=== PATIENT | male | born 1965 | race Caucasian/White ===

== ENCOUNTER → 2024-02-29 13:32 | Outpatient (REF) | payer OTHER, SELFPAY | LOC: HWRAD 13:32 | PROVIDERS: ATTENDING PHYSICIAN Internal Medicine Geriatric Medicine | DX: I10 Essential (primary) hypertension (principal); M70.21 Olecranon bursitis, right elbow | CPT/HCPCS: 73080 ==

== ENCOUNTER → 2025-06-04 12:54 | Outpatient (REF) | payer OTHER, SELFPAY | LOC: RAD 12:54 | PROVIDERS: ATTENDING PHYSICIAN Internal Medicine Geriatric Medicine | DX: M79.89 Other specified soft tissue disorders (principal) | CPT/HCPCS: 93971 ==